=== PATIENT | female | born 1950 | race Caucasian/White ===

== ENCOUNTER 2019-01-18 05:31 | Inpatient (IN) | payer OTHER ==
[2019-01-10 13:27] LABS: URINE BILIRUBIN NEGATIVE (Negative); URINE BLOOD NEGATIVE (Negative); URINE CLARITY CLEAR; URINE COLOR YELLOW; URINE GLUCOSE-RANDOM* NEGATIVE (Negative); URINE KETONES NEGATIVE (Negative); URINE LEUKOCYTES-REFLEX NEGATIVE (Negative); URINE NITRITE-REFLEX NEGATIVE (Negative); URINE PROTEIN (DIPSTICK) NEGATIVE (Negative)
[2019-01-10 13:29] LABS: HEMATOCRIT 38.6 % (37.0-47.0); HEMOGLOBIN 12.8 gm/dL (12.0-15.0); MCH 30.9 pg (26.0-34.0); MCHC 33.2 g/dL (28.0-37.0); MCV 93.3 fL (80.0-100.0); RBC 4.14 mil/uL (4.20-5.00); RDW 14.1 % (10.5-14.5); WBC 3.9 thou/uL (4.0-11.0)
[2019-01-10 13:35] LABS: ALBUMIN 3.7 g/dL (3.4-5.0); CALCIUM 9.1 mg/dL (8.5-10.1); CREATININE 1.1 mg/dL (0.6-1.0); POTASSIUM 4.7 mmol/L (3.5-5.1)
[2019-01-10 13:40] LABS: PROTIME 10.8 Seconds (9.3-11.4)
--- NOTE | 2019-01-10 17:17 | EKG ---
[address] [place] [employer] [address] ELECTROCARDIOGRAM REPORT Name: JEAN-PAUL SHAW Room #: PRE IN ..#: [id number] ������������������ Admission: ������������������ Attend Phys: Vikram Dillard MD Discharge: ������������������ Date of : 46 Report #: [id number] ����������������������������������������������������������������� [id number] THIS REPORT FOR: //name// [facility] Test Date: 2019-01-10 Test Time: 13:12:48 Pat Name: JEAN-PAUL SHAW Department: Room: Gender: F Social Media Content Manager: maximus perkins : 1950 Requested By: Vikram Dillard Order Number: [id number] MD: Mir Huang Measurements Intervals [place] Rate: 58 P: 59 ME: 153 QRS: -25 QRSD: 106 T: 29 QT: 458 QTc: 450 Interpretive Statements Sinus rhythm Borderline left axis deviation Borderline T abnormalities, anterior leads No previous ECG available for comparison Electronically Signed On 01-10-2019 17:17:19 CDT by Mir Huang [email or web address] ��������������������������������������������� <ELECTRONICALLY SIGNED> ���������������������������������������� By: Mir Huang MD ��������������������������������������������� 01/10/19 1717 1312 1312 MD MATTHEW Banks
[~2019-01-18] VITALS: Ht 170.2 cm; Wt 108.4 kg
--- NOTE | ~2019-01-18 | O ---
[facility] [place] [address] OPERATIVE REPORT Name: JEAN-PAUL SHAW Room #: 150-4 ADM IN M.R.#: [id number] Admission: 01/18/19 ������������������ Attend Phys: Vikram Dillard MD Discharge: ������������������ Date of : 46 Report #: [id number] THIS REPORT FOR: //name// CC: Angelito Dillard DATE OF SERVICE: 01/18/2019 PREOPERATIVE DIAGNOSIS: Right knee osteoarthritis. POSTOPERATIVE DIAGNOSIS: Right knee osteoarthritis. PROCEDURE: Right total knee arthroplasty using Navio robotic assistance. SURGEON: Vikram Dillard MD. YARN DYER: Kamala Espinal PA-C. INDICATIONS FOR PROCEDURE: Throughout the case, extensive retraction and manipulation of the knee was required. This was afforded to me by my ophthalmic assistant. ANESTHESIA: LMA with an adductor canal block. IMPLANTS: Alan and Nephew size 5, Legion cobalt chrome posterior stabilized femur, a size 4 tibia, size 11 polyethylene and size 32 patella. TOURNIQUET TIME: 61 minutes. ESTIMATED BLOOD LOSS: 25 mL. COMPLICATIONS: None. SPECIMENS: None. CONDITION UPON LEAVING THE OPERATING ROOM: Stable. INDICATIONS FOR PROCEDURE: The patient is a 68-year-old female with severe right knee osteoarthritis and failed conservative measures for this and after discussion with her, she elected for right total knee arthroplasty. DESCRIPTION OF PROCEDURE: Risks, benefits, alternatives, complications were discussed in detail with the patient including but not limited to risk of anesthesia, risk of damage to nerves, arteries, blood vessels, risk for infection, bleeding, risk for continued knee pain, need for reoperation. Informed consent was obtained from the patient. Right knee was appropriately marked in the preoperative holding area. IV Ancef was given for preoperative [address] [address] OPERATIVE REPORT Name: JEAN-PAUL SHAW Room #: 150-4 ADM IN M.R.#: [id number] Admission: 01/18/19 ������������������ Attend Phys: Vikram Dillard MD Discharge: ������������������ Date of : 46 Report #: [id number] antibiotics. Adductor canal block was placed by Anesthesia. She was brought to the operating room and placed in supine position on operating room table. LMA anesthesia was induced without complication. Tourniquet was placed on the right thigh. Right lower extremity was prepped and draped in normal sterile fashion. Timeout was performed properly identifying the patient and procedure as well as the instrumentation and implants. All in the operating room were in agreement. Right lower extremity was exsanguinated, tourniquet was inflated. Tourniquet time was 61 minutes. Standard midline approach to knee was made with 10 blade and dissection was taken down sharply to the fascia and deep flaps were developed medially and laterally. Fresh 10 blade was used to make a medial parapatellar arthrotomy and the knee was inspected. There was severe tricompartmental osteoarthritic change. ACL and PCL were removed sharply. Reference pins were placed in the femur and the tibia and the knee was digitally mapped using the Lever robotic system. Intraoperative plan was made and we sized to a size 5 femur, a size 4 tibia. After this, a size 11 polyethylene, after acceptance of the intraoperative plan, the distal femoral cut was made with the Navio keira, the 4-in-1 cutting block size 5 was then placed on the distal femur and anterior, posterior and chamfer cuts were made. Attention was then turned to the tibia. The remainder of the menisci removed with Bovie cautery. Tibial resection guide was pinned in place to the Navio assistance for placement of the guide and the tibial resection was made. Medial osteophyte was removed from the medial tibial plateau. After this, flexion and extension gaps were checked and found to have good balance in flexion and extension both medially and laterally. After this, the tibia was sized, found to be a size 4. Size 4 tibial trial was placed and punched. A size 5 femoral trial was placed and the box cut was made. This was trialed with a size 10 and then a size 11 polyethylene and size 11 polyethylene demonstrated 1 millimeter of laxity medially and laterally throughout range of motion. After this, 9 mm was taken off the posterior surface of the patella and a size 32 patellar trial button placed. Knee was taken through range of motion, found to be stable, found to have good patellar tracking. After this, trial components removed. Bony ends were thoroughly irrigated with normal saline. A final size 4 tibia, size 5 Legion cobalt chrome posterior stabilized femur and a size 32 patella were cemented in place using standard cementation techniques. While the cement cured, a periarticular injection consisting of morphine, ropivacaine, epinephrine and Toradol was placed around the knee joint capsule. After the cement cured, tourniquet was deflated. Hemostasis was obtained with Bovie cautery. A final size 11 polyethylene was placed. A gram of vancomycin was placed deep in the joint. Fascia was closed with 0 Vicryl, skin was closed with 2-0 Vicryl, 3-0 Monocryl. Dermabond and a RAMIRO dressing was applied. The patient tolerated this procedure well and went to the recovery room under the care of anesthesia postoperatively. ��������������������������������������������� ���������������������������������������� By: ��������������������������������������������� 1637 1818 Vikram Dillard MD /nt
[~2019-01-18 05:31] MED LIST: ADVAIR HFA 230M12 GM INH; ALL DAY ALLERGY10 M3 PO; AMBIEN 5 MG TABL5 M1 PO; ASPIR 8181 MG PO; LASIX 20 MG TAB20 MG PO; MOBIC15 MG PO; NEURONTIN600 MG PO; NIASPAN ER 101000 M1 PO; POTASSIUM20 PO; PROAIR HFA8.5 GM INH; SYNTHROID100 MC1 PO; TRAZODONE HCL50 MG PO; VITAMIN B-121000 MCG IM; XANAX1 MG PO; ZOLOFT50 MG PO
[2019-01-18 14:33] VITALS: BP 150/77
--- NOTE | 2019-01-18 18:59 | NUR ---
PT ADMITTED TO ROOM 420 AT 1810 PLEASANT AND CIOOPERATIVE WITH CARE. V.S. TAKEN FLUIDS STARTED.
[2019-01-18 19:27] VITALS: BP 141/81
--- NOTE | 2019-01-19 03:25 | NUR ---
PATIENT ALERT AND ORIENTED X4. ON BEDREST THIS SHIFT. DRESSING ON R KNEE D/I. C/O PAIN, MED GIVEN. IV FLUIDS RUNNING IN LFA. SLEPT MOST OF THIS SHIFT.
[2019-01-19 04:44] VITALS: BP 117/53
[2019-01-19 05:37] LABS: HEMATOCRIT 29.7 % (37.0-47.0); HEMOGLOBIN 9.8 gm/dL (12.0-15.0); MCH 30.5 pg (26.0-34.0); MCV 92.4 fL (80.0-100.0); RBC 3.22 mil/uL (4.20-5.00); RDW 13.9 % (10.5-14.5); WBC 11.6 thou/uL (4.0-11.0)
[2019-01-19 07:30] VITALS: BP 127/50
--- NOTE | 2019-01-19 08:47 | NUR ---
INITIAL ASSESSMENT: Pt evaluated for d/c planning needs. Reviewed chart and spoke with nurse and pt. Pt is alert and oriented. Pt lives in mobile home with and son. Pt was independent with ADL's prior to admission. Pt had home health while living in [place], but none in area. Pt has walker and cane at home. Pt is hopeful to return home with home health. Will remain available to assist as needed.
[2019-01-19] MEDS ORDERED: TRI-BUFFERED A325 M1 PO (09:49)
--- NOTE | 2019-01-19 15:04 | NUR ---
ASSUMED CARE OF PT AT 0700. ASSESSMENT COMPLETED. A&O,X4. C/O RIGHT KNEE PAIN POD1, PO PAIN MEDS GIVEN ORDERED. RIGHT RAMIRO DRESSING IN PLACE, SMALL AMOUNT SANGINOUS DRAINAGE NOTED. +2 EDEMA RIGHT LEG, +1 LEFT LEG. ASSIST X1, WALKER AND GAIT BELT TO AMBULATE. PT WORKED WITH P.T. TO WALK IN HALLWAYS AND SIT UP IN THE CHAIR. PT IN STABLE CONDITION. PT TRANSFERED TO [facility] AT 15:05 VIA WHEELCHAIR WITH BELONGINS. FAMILY NOTIFIED OF ROOM CHANGE. NO OTHER CHANGE IN STATUS.
[2019-01-19 15:33] VITALS: BP 113/57
--- NOTE | 2019-01-20 02:24 | NUR ---
Assumed pt. care at 1900. Remains A&Ox3; swallows meds whole w/o difficulty. Remains cont B&B. Ambulates to bathroom w/ standby asst + walker; gait steady. Pt. post - op day 2 following R total knee. Nomi DRSG to R knee remains dry and intact w/ red drainage noted to site. RFA SL noted/flushed w/ NS w/o difficulty. Knee high teds + SCDs intact to BLEs. Continues w/ RT tx, as ordered, w/o difficulty. Pt. encouraged to utilize Incentive spirometer. Denies pain or discomfort. No s/s of acute distress noted. Pt. asleep in bed w/ call light/desired belongings within reach. PO fluids encouraged. Will continue to monitor.
[2019-01-20 06:21] LABS: HEMOGLOBIN 8.9 gm/dL (12.0-15.0); MCHC 33.1 g/dL (28.0-37.0); MCV 93.7 fL (80.0-100.0); RBC 2.88 mil/uL (4.20-5.00); RDW 13.9 % (10.5-14.5); WBC 5.5 thou/uL (4.0-11.0)
[2019-01-20 08:30] VITALS: BP 136/66
--- NOTE | 2019-01-20 10:51 | NUR ---
DISCHARGE PLANNING. PATIENT IS POST RIGHT TOTAL KNEE ARTHROPLASTY. DISCHARGE IS PLANNED FOR TODAY TO HOME WITH HOME HEALTH SERVICES. PATIENT REFERRAL FAXED TO [facility]. CALL PLACED TO [facility] TO NOTIFY OF REFERRAL AND PATIENT HH NEEDS. [facility] TO REVIEW REFERRAL AND CONTACT CM ONCE COMPLETE. UNIT CM/SW AWARE. FOLLOWING.
[2019-01-20 12:09] VITALS: BP 113/57
--- NOTE | 2019-01-20 12:11 | NUR ---
[facility] IS ABLE TO ACCEPT PT FOR PHYSICIAL THERAPY UPON DISHCARGE THIS DAY. PT IS AWARE AND AGREEABLE. PT HAS ALL RECOMMENDED DME. CHOICE FORM COMPLETED AND PUT ON THE CHART. NO OTHER CM INTERVENTION INDICATED CASE CLOSED.
--- NOTE | 2019-01-20 12:28 | NUR ---
CALLED PT'S SISTER TO LET HER KNOW PT WAS READH TO BE D/C'D. SHE STATES THEY CANNOT COME UP UNTIL AFTER 17:00 SHE ASKED FOR OUR PHONE NUMBER IN CASE THEY CAN COME UP SOONER. PT IS VISITING [facility] CURRENTLY, WHO CANNOT TAKE HER HOME. PT DELIGHTED W/FINALLY BEING ABLE TO EAT
[2019-01-20] MEDS ORDERED: MORPHINE SULFAT15 M3 PO (16:18)
--- NOTE | 2019-01-20 16:53 | NUR ---
ASSUMED PATIENT AND CARES AT 0715, PATIENT WOKE SITTING UP IN RECLINER RECLINED, A&OX4, PAIN 4/10 RECEIVING PAIN MEDICATION AT 0530, RIGHT FOREARM IV INTACT AND PATENT PER FLUSH, RAMIRO DRSG TO RIGHT KNEE INTACT WITH SEVERAL AREAS OF DRAINAGE, JOSEPH HOSE AND SCDS IN PLACE, SBA WITH WALKER, PATIENT TAKEN TO BATHROOM PRIOR TO SHIFT CHANGE, FALL PRECAUTIONS IN PLACE, PERSONAL BELONGINGS AND CALL LIGHT IN REACH, WILL CONTINUE TO MONITOR
--- NOTE | 2019-01-20 17:00 | NUR ---
PATIENT DISCHARGED HOME WITH HOME HEALTH, PATIENT DRESSED SELF AND PACKED BELONGINGS, RIGHT FOREARM IV REMOVED WITH GAUZE AND TAPE PLACED, DISCHARGE INSTRUCTIONS AND MEDICATIONS DISCUSSED, SCRIPTS GIVEN TO PATIENT, PATIENT SON HERE TO TAKE PATIENT HOME, PHYSICIANS AND SURGEONS TOOK PATIENT TO BUILDING D ENTRANCE PER WHEELCHAIR
== END 2019-01-20 16:47 | disposition home health service (06) | DRG 470 ==
LOC: PRE 05:31 → 4E 05:33 → TBA 05:33 → PRE 10:34 → 4E 18:26 → ENTRNSPT 01-19 14:40 → EDTRNSPTSTS 01-19 14:46 → SICU 01-19 15:12 → EDTRNSPTTYP 01-20 16:24 → EDTRNSPT 01-20 16:24 → SICU 01-20 16:47
PROVIDERS: ADMIT Orthopaedic Surgery
DX: M17.11 Unilateral primary osteoarthritis, right knee (principal); Z79.82 Long term (current) use of aspirin; Z79.899 Other long term (current) drug therapy
CPT/HCPCS: 10783; 15002; 50010; 50101; 50415; 50954; 51130; 51225; 53000; 53078; 53364; 54118; 56527; 56528; 57095; 57103; 57110; 57127; 57180; 62110; 62900; 64043; 65060; 70005

== ENCOUNTER 2019-01-25 19:14 | Inpatient (IN) | payer OTHER ==
[2019-01-25] VITALS (9 sets, daily range): BP systolic 131–167; BP diastolic 58–75
[~2019-01-25] VITALS: Ht 167.6 cm; Wt 117.3 kg
[~2019-01-25 19:14] MED LIST changes: +MORPHINE SULFAT15 M3 PO; +TRI-BUFFERED A325 M1 PO
[2019-01-26] VITALS (8 sets, daily range): BP systolic 107–148; BP diastolic 44–75
--- NOTE | 2019-01-26 04:56 | NUR ---
PATIENT ARRIVED FROM OR RECOVERY AT 1850 VIA CART ACCOMPANIED BY OR PERSONEL. PATIENT ALERT AND ORIENTED X4. RAMIRO DRESSING ON RLE, D/I. HAS HEMAVAC ON RLE. USING BEDPAN SEVERAL TIMES THIS SHIFT. PASSING FLATUS BUT NO BM YET. RLE IS SEVERELY BRUISED. C/O PAIN WITN MED GIVEN. O2 AT 2L/NC. HAS SCD'S ON LLE. SLEPT OFF AND ON DURING NIGHT.
[2019-01-26 06:42] LABS: HEMATOCRIT 22.3 % (37.0-47.0); HEMOGLOBIN 7.2 gm/dL (12.0-15.0); MCH 30.8 pg (26.0-34.0); MCHC 32.3 g/dL (28.0-37.0); MCV 95.2 fL (80.0-100.0); RBC 2.34 mil/uL (4.20-5.00); WBC 6.8 thou/uL (4.0-11.0)
--- NOTE | 2019-01-26 10:20 | NUR ---
INITIAL ASSESSMENT: Pt evaluated for d/c planning needs. Reviewed chart and spoke with nurse and pt. Pt is alert and oriented. Pt lives in mobile home with and son. Pt was independent with ADL's prior to admission. Pt was hospitalized at [facility] last week and returned [facility] with [facility]. Pt has walker and cane at home. Pt is hopeful to return home with home health. Will remain available to assist as needed.
--- NOTE | 2019-01-26 11:00 | O ---
[facility] [place] [address] OPERATIVE REPORT Name: JEAN-PAUL SHAW Room #: 222-P ADM IN M.R.#: [id number] Admission: 01/25/19 ������������������ Attend Phys: Vikram Dillard MD Discharge: ������������������ Date of : 46 Report #: [id number] THIS REPORT FOR: //name// CC: Angelito Dillard DATE OF SERVICE: 01/25/2019 PREOPERATIVE DIAGNOSIS: Right knee wound dehiscence with hematoma, status post total knee arthroplasty. POSTOPERATIVE DIAGNOSIS: Right knee wound dehiscence with hematoma, status post total knee arthroplasty. PROCEDURE: I and D, right total knee arthroplasty wound with evacuation of the hematoma. SURGEON: Vikram Dillard MD. FUNDING ANALYST: Kamala Espinal PA-C. ANESTHESIA: LMA. FINDINGS: A small wound dehiscence with underlying hematoma. ESTIMATED BLOOD LOSS: 25 mL. COMPLICATIONS: None. SPECIMENS: None. CONDITION UPON LEAVING THE OPERATING ROOM: Stable. INDICATIONS FOR PROCEDURE: The patient is a 68-year-old female who is about one week out from a right total knee arthroplasty. She had a fall and presented to the clinic with serosanguineous drainage from her inferior portion of her incision. It was felt that she had a partial wound dehiscence with underlying hematoma and after discussion with she and her family, they elected for I and D of the right knee wound with evacuation of the hematoma. DESCRIPTION OF PROCEDURE: Risks, benefits, alternatives, complications were discussed in detail with the patient including but not limited to risk of anesthesia, risk of damage to nerves, arteries, blood vessels, risk for infection, bleeding, risk for continued knee pain and need for reoperation. Informed consent was obtained from the patient. The right knee was appropriately marked in the preoperative holding area. IV Ancef was given for [address] [address] OPERATIVE REPORT Name: JEAN-PAUL SHAW Room #: 222-P [facility] IN .R.#: [id number] Admission: 01/25/19 ������������������ Attend Phys: Vikram Dillard MD Discharge: ������������������ Date of : 46 Report #: [id number] preoperative antibiotics. She was brought to the operating room and placed in the supine position on the operating room table. LMA anesthesia was induced without complication. Right lower extremity was prepped and draped in normal sterile fashion. Timeout was performed properly identifying the patient and procedure as well as the instrumentation. All in the operating room were in agreement. The previous incision was then opened with #10 blade. Upon entering the subcutaneous layer, there was a large hematoma that was evacuated. The knee was inspected. The retinacular closure had been torn open likely secondary to her fall and there was a hematoma in the knee. This was evacuated. Knee was then thoroughly irrigated with normal saline using pulse lavage. The fascia layer was then repaired with 0 Vicryl. A drain was placed in the adipose layer and the skin was closed with 2-0 Vicryl, 3-0 nylon and a RAMIRO dressing was applied. The patient tolerated this procedure well and went to the recovery room under care of anesthesia postoperatively. ��������������������������������������������� <ELECTRONICALLY SIGNED> ���������������������������������������� By: Vikram Dillard MD ��������������������������������������������� 01/26/19 1100 1749 1813 Vikram Dillard MD /nt
--- NOTE | 2019-01-27 02:24 | NUR ---
ASSUMED PT CARE 1899. PT ALERT AND ORIENTED. REASSESSMENT COMPLETE. VSS. PT DENIES N/V, REPORTS PAIN, SEE EMAR. EXTENSIVE SWEELING AND BRUISING TO RLE. PT CALL LIGHT AND PERSONAL BELONINGS WITHIN REACH. WILL CONTINUE POC UNTIL EOS.
[2019-01-27 05:48] LABS: HEMOGLOBIN 6.9 gm/dL (12.0-15.0)
[2019-01-27 05:49] LABS: HEMATOCRIT 21.2 % (37.0-47.0); MCH 31.1 pg (26.0-34.0); MCHC 32.5 g/dL (28.0-37.0); MCV 95.5 fL (80.0-100.0); RBC 2.22 mil/uL (4.20-5.00); RDW 14.7 % (10.5-14.5); WBC 6.5 thou/uL (4.0-11.0)
[2019-01-27 06:09] VITALS: BP 124/85
[2019-01-27] MEDS ORDERED: HYDROCODON-ACE1 EAC7 PO (13:12)
--- NOTE | 2019-01-27 13:47 | NUR ---
S/W PT AND OFFERED SKILLED FACILITIES WITHIN HER INS NETWORK. SHE CHOSE [facility] AND [facility]. ASKED DC CREDIT ASSISTANT TO FAX REFERRALS.
--- NOTE | 2019-01-27 15:24 | NUR ---
FAXED REFERRAL TO [facility] SPOKE WITH CÉSAR IN ADM SHE RECEIVED REFERRAL AND WILL NOT HAVE A BED TIL WEDNESDAY. FAXED REFERRAL TO [facility] SPOKE WITH CHITO IN ADM SHE RECEIVED REFERRAL AND THEY WILL HAVE A BED TIL WEDNESDAY SHE WILL REVIEW REFERRAL AND DCP TO F/U ON WEDNESDAY IF PT NOT PLACED. FAXED REFERRAL TO [facility] SPOKE WITH JORDEN IN ADM SHE CAN ACCEPT PT BUT WILL NOT BE ABLE TO GET AUTH TODAY BEING SO LATE IN THE DAY BUT SHE DOES HAVE A BED AVAILABLE. DCP TO FOLLOW.
[2019-01-27 18:07] VITALS: BP 136/61
[2019-01-27 20:47] VITALS: BP 116/54
--- NOTE | 2019-01-28 04:11 | NUR ---
ASSUMED PT CARE 1900. PT ALERT AND ORIENTED. REASSESSMENT COMPLETE. VSS. IV DRESSING C/D/I, NO SIGN OF INFITRATION. PT DENIES N/V. REPORTS PAIN, SEE EMAR. RAMIRO DRESSING C/D/I. CALL LIGHT AND PERSONAL BELONINGS WITHIN REACH, WILL CONTINUE POC UNTIL EOS.
[2019-01-28 05:26] VITALS: BP 127/45
[2019-01-28 07:44] LABS: HEMATOCRIT 23.8 % (37.0-47.0); HEMOGLOBIN 7.8 gm/dL (12.0-15.0); MCH 31.3 pg (26.0-34.0); MCHC 32.7 g/dL (28.0-37.0); MCV 95.8 fL (80.0-100.0); RBC 2.48 mil/uL (4.20-5.00); RDW 15.3 % (10.5-14.5); WBC 6.8 thou/uL (4.0-11.0)
--- NOTE | 2019-01-28 15:48 | NUR ---
ASSUMED PT CARE 07. PT ALERT AND ORIENTED X4, REPORTS SLEEP WAS ON AND OFF LAST NIGHT. REASSESSMENT COMPLETE. VSS. PT DENIES N/V, REPORTS PAIN, C/O R KNEE PAIN 04/22, PRN HYDROCODONE GIVEN 2X. EXTENSIVE SWEELING AND BRUISING TO RLE ARE GETTING BETTER. PT USES CALL LIGHT APPROPRIATELY AND PERSONAL BELONGINGS WITHIN REACH. ASSIST TO BATHROOM WITH A WALKER. REPORTS LAST BM WAS YESTERDAY. OFFERED SUPPORTIVE CARE. CAME TO VISIT. HER GOALS TO GET STRONGER BEFORE DISCHARGE ON WEDNESDAY TO REHAB PLACE. IV WAS INFILTRATED. HAS NO IV AT THIS MOMENT. PT REFUSES TO HAVE IV. RAMIRO DRESSING PATENT AND INTACT.WILL CONTINUE TO MONITOR.
[2019-01-28 17:45] VITALS: BP 134/52
[2019-01-28 22:44] VITALS: BP 138/49
[2019-01-29 06:02] VITALS: BP 139/70
--- NOTE | 2019-01-29 06:34 | NUR ---
PT AMBULATING TO BATHROOM WITH WALKER AND STANDBY ASSIST AND IS TOLERATING FAIR. LORTAB PROVIDING PAIN RELIEF. DENIES NAUSEA. RESTING COMFORTABLY. NO NEEDS VOICED. CALL LIGHT WITHIN REACH. WILL CONTINUE TO PROVIDE FREQUENT OBSERVATION.
[2019-01-29 07:11] VITALS: BP 144/58
--- NOTE | 2019-01-29 08:55 | NUR ---
PATIENT CARE WAS ASSUMED AT 0715.PATIENT IS ALERT AND ORIENTED X4.PATIENT IS SITTING UP IN BED EATING BREAKFAST.PATIENT STATES SHE HAS PAIN 5/10 ON 0-10 PAIN SCALE, WILL GIVE PAIN MEDS DURING MORNING MED PASS.PT HAS NO COMPLAINS OF N/V.PT IS ABLE TO AMBULATE WITH STAND BY ASSIST WITH WALKER.PT CALLS OUT FOR NURSE WHEN ASSISTANCE IS NEED.CALL LIGHT,PHONE AND PERSONAL BELONGINGS ARE WITHIN REACH.
[2019-01-29 15:28] VITALS: BP 125/55
[2019-01-29 20:19] VITALS: BP 130/54
[2019-01-30 05:01] VITALS: BP 132/56
--- NOTE | 2019-01-30 06:45 | NUR ---
PT AMBULATING TO BATHROOM WITH WALKER AND ASSIST X1 AND IS TOLERATING FAIR. LORTAB PROVIDING PAIN RELIEF. DENIES NAUSEA. RESTING COMFORTABLY. NO NEEDS VOICED. CALL LIGHT WITHIN REACH. WILL CONTINUE TO PROVIDE FREQUENT OBSERVATION.
[2019-01-30 08:09] VITALS: BP 130/57
--- NOTE | 2019-01-30 10:52 | NUR ---
ASSUMED CARE AT 0700, SHIFT ASSESSMENT DONE, MEDS GIVEN, VSS. REPORTED PAIN, PRN PAIN MEDS GIVEN. WORKED WITH PHYSICAL AND OCCUPATIONAL THERAPHY. AWAITING FOR PLACEMENT. WILL CONTINUE TO ASSESS AND ASSIST WITH ADLs NEEDED.
--- NOTE | 2019-01-30 16:09 | NUR ---
REFAXED REFERRAL TO [facility] SPOKE WITH HERBER IN ADM AND SHE WILL HAVE DON REVIEW REFERRAL DCP TO FOLLOW.
--- NOTE | 2019-01-30 17:16 | NUR ---
AWAITING SKILLED PLACEMENT. CM TO FOLLOW INDICATED WITH DC PLANNING.
[2019-01-30 17:21] VITALS: BP 110/73
[2019-01-30 21:03] VITALS: BP 126/61
--- NOTE | 2019-01-31 03:51 | NUR ---
PATIENT ALERT AND ORIENTED X4. RAMIRO DRESSING ON R KNEE INTACT. HAS 2 STITCHES ABOVE AND 2 BELOW RAMIRO DRESSING. C/O PAIN X2, MED GIVEN. UP TO BATHROOM WITH BATHROOM. SLEPT OFF AND ON DURING NIGHT.
[2019-01-31 05:09] VITALS: BP 136/59
[2019-01-31 08:20] VITALS: BP 133/57
[2019-01-31 10:47] VITALS: BP 133/57
--- NOTE | 2019-01-31 10:53 | NUR ---
PT DISCHARGING TODAY [facility] PT WAS ON SERVICE WITH THEM PROPERTY FIELD INSPECTOR. FAXED DC ORDERS.SUMMARY TO [facility] SPOKE WITH KORIN IN ADM SHE WILL NOTIFY PT TIME OF VISITS.
[2019-01-31 11:23] VITALS: BP 133/57
--- NOTE | 2019-01-31 12:03 | NUR ---
DISCHARGE ORDERS RECEIVED, NO IV ACCESS. PAPERWORK AND SCRIPT GIVEN. LEFT WITH [facility] AT 1210
--- NOTE | 2019-01-31 14:28 | NUR ---
Following for d/c planning needs. Pt has now decided she wants to return home and not go to SNF. planner to notify facilities re: change in plans, and fax orders to home health. No other needs identified.
== END 2019-01-31 12:06 | disposition home health service (06) | DRG 909 ==
LOC: SICU 19:14 → OR 19:14 → SICU 19:15 → 4E 01-26 14:31 → ENTRNSPT 01-31 11:51 → EDTRNSPTSTS 01-31 11:58 → 4E 01-31 12:06
PROVIDERS: ADMIT Orthopaedic Surgery
PROC: 0SCC0ZZ Extirpation of Matter from Right Knee Joint, Open Approach (ICD-10-PCS; principal; 2019-01-25)
DX: T81.32XA Disruption of internal operation (surgical) wound, not elsewhere classified, initial encounter (principal); Y83.8 Other surgical procedures as the cause of abnormal reaction of the patient, or of later complication, without mention of misadventure at the time of the procedure; Z96.651 Presence of right artificial knee joint; Y92.89 Other specified places as the place of occurrence of the external cause; Z91.81 History of falling
CPT/HCPCS: 10783; 15002; 50010; 50101; 50415; 50954; 51771; 53078; 56527; 56528; 57095; 57103; 57116; 62110; 62900; 70005